=== PATIENT | female | born 1980 | race Caucasian/White ===

== ENCOUNTER 2019-10-31 18:59 | Emergency (ER) | payer OTHER ==
[2019-10-31 19:32] VITALS: BMI 53.7
--- NOTE | 2019-10-31 20:46 | PDOC ---
History of Present Illness - General Chief Complaint: Pain Stated Complaint: ABDOMINAL PAIN Time Seen by Provider: 10/31/19 20:41 History Source: Patient - History of Present Illness Initial Comments: 10/31/19 20:43 38 year old chills, upper abdominal pain x 2 days. + runny nose denies nausea, vomiting,diarrhea. took tylenol at 6.30 pm. surgical site clean dry and intact. s/p gastric sleeve October 14, 2019 Dr. Alas Past History - Past Medical History Allergies/Adverse Reactions: Allergies Allergy/AdvReac Type Severity Reaction Status Date / Time nickel Allergy Verified 10/31/19 19:33 COPD: No - Surgical History GI Surgery: Yes (Gastric sleeve 10/14/19) - Psycho Social/Smoking Cessation Hx Smoking History: Never smoked Hx Alcohol Use: No Drug/Substance Use Hx: No Review of Systems - Review of Systems Able to Perform ROS?: Yes Is the patient limited Spanish proficient: No Constitutional: Yes: Chills, Other HEENTM: Yes: Nose Congestion. No: Symptoms Reported, See HPI, Eye Pain, Blurred Vision, Tearing, Recent change in vision, Double Vision, Cataracts, Ear Pain, Ocular Prothesis, Ear Discharge, Nose Pain, Tinnitus, Nose Bleeding, Hearing Loss, Throat Pain, Throat Swelling, Mouth Pain, Dental Problems, Difficulty Swallowing, Mouth Swelling, Other Cardiac (ROS): Yes: Chest Pain ABD/GI: Yes: Abdominal cramping (epigastric area radiating up). No: Symptoms Reported, See HPI, Abdominal Distended, Abd. Pain w/ defecation, Blood Streaked Bowels, Constipated, Diarrhea, Difficulty Swallowing, Nausea, Poor Appetite, Poor Fluid Intake, Rectal Bleeding, Vomiting, Indigestion, Tarry Stools, Other : No: Symptoms Reported, See HPI, Burning, Dysuria, Discharge, Frequency, Flank Pain, Hematuria, Incontinence, Pain, Urgency, Testicular Mass, Testicular Swelling, Lesions, Testicular Pain, Other *Physical Exam - Vital Signs Last Vital Signs Temp Pulse Resp BP Pulse Ox 97.8 F 117 H 19 140/68 100 10/31/19 19:29 10/31/19 19:29 10/31/19 19:29 10/31/19 19:29 10/31/19 19:29 - Physical Exam General Appearance: Yes: Appropriately Dressed Respiratory/Chest: positive: Lungs Clear, Normal Breath Sounds Cardiovascular: positive: Regular Rhythm, Regular Rate Gastrointestinal/Abdominal: positive: Normal Bowel Sounds, Tender (RUQ), Soft Extremity: positive: Normal Capillary Refill, Normal Inspection, Normal Range of Motion Integumentary: positive: Normal Color, Dry, Warm Neurologic: positive: Fully Oriented, Alert ED Treatment Course - LABORATORY CBC & Chemistry Diagram: 10/31/19 22:05 10/31/19 22:05 ED Progress Note - Progress Note Progress Note: 10/31/19 23:17 A: abdominal pain s/p gastric sleeve P; cbc cmp lactic acid 1.2 blood culture ua urine culture Medical Decision Making - Medical Decision Making 10/31/19 20:54 rectal temp is 103.8 10/31/19 23:[address] Gusman surgeon covering for Dr. Zeke alas 11/01/19 00:[address] gusman. accepted patient for transfer at [facility]. I spoke to JOE novak in [facility]. after speaking with ED attending prefer patient to be transferred to floor admission after CTAP/ 11/01/19 00:41 I spoke to Bedboard. no direct admission after hours i spoke to ED attending Dr. Whitaker. accepting patient for transfer to the ER 11/01/19 01:33 patient is pendoing CTAP read and transfer to [facility] 11/01/19 01:51 CTAP 2.6 x 3.4 x 2.4 cm area of confluent edema with gas versus fluid and gas collection within the left upper quadrant immediately adjacent to the proximal stomach is concerning for leak status post gastric sleeve resection. Recommend repeat CT following administration of water- soluble contrast and/or fluoroscopy. One or more of the following dose reduction techniques were used: aut 11/01/19 01:58 Laboratory Results - last 24 hr 10/31/19 10/31/19 10/31/19 21:12 22:05 22:05 WBC 19.4 H RBC 4.66 Hgb 12.6 Hct 39.2 MCV 84.3 MCH 27.0 MCHC 32.0 RDW 13.9 Plt Count 354 MPV 8.4 Absolute Neuts (auto) 17.7 H Neutrophils % 91.2 H Neutrophils % (Manual) 90.0 H Band Neutrophils % 4.0 Lymphocytes % 3.1 L Lymphocytes % (Manual) 4.0 L Monocytes % 5.4 Monocytes % (Manual) 2 L Eosinophils % 0.1 Eosinophils % (Manual) 0.0 Basophils % 0.2 Basophils % (Manual) 0.0 Nucleated RBC % 0 Platelet Estimate Adequate PT with INR 17.90 H INR 1.51 H PTT (Actin FS) 34.4 Sodium Potassium Chloride Carbon Dioxide Anion Gap BUN Creatinine Est GFR (CKD-EPI)AfAm Est GFR (CKD-EPI)NonAf Random Glucose Lactic Acid Calcium Total Bilirubin AST ALT Alkaline Phosphatase Troponin I Total Protein Albumin Lipase 123 Urine Color Urine Appearance Urine pH Ur Specific [place] Urine Protein Urine Glucose (UA) Urine Ketones Urine Blood Urine Nitrite Urine Bilirubin Urine Urobilinogen Ur Leukocyte Esterase Urine WBC (Auto) Urine RBC (Auto) Urine Casts (Auto) U Epithel Cells (Auto) Urine Bacteria (Auto) Urine HCG, Qual Influenza A (Rapid) Influenza B (Rapid) 10/31/19 10/31/19 10/31/19 22:05 22:05 22:05 WBC RBC Hgb Hct MCV MCH MCHC RDW Plt Count MPV Absolute Neuts (auto) Neutrophils % Neutrophils % (Manual) Band Neutrophils % Lymphocytes % Lymphocytes % (Manual) Monocytes % Monocytes % (Manual) Eosinophils % Eosinophils % (Manual) Basophils % Basophils % (Manual) Nucleated RBC % Platelet Estimate PT with INR INR PTT (Actin FS) Sodium 132 L Potassium 3.7 Chloride 100 Carbon Dioxide 21 Anion Gap 11 BUN 7.5 Creatinine 0.9 Est GFR (CKD-EPI)AfAm 92.70 Est GFR (CKD-EPI)NonAf 79.98 Random Glucose 120 H Lactic Acid Calcium 8.9 Total Bilirubin 0.8 AST 17 ALT 26 Alkaline Phosphatase 87 Troponin I Total Protein 7.5 Albumin 3.4 Lipase Urine Color Urine Appearance Urine pH Ur Specific [place] Urine Protein Urine Glucose (UA) Urine Ketones Urine Blood Urine Nitrite Urine Bilirubin Urine Urobilinogen Ur Leukocyte Esterase Urine WBC (Auto) Urine RBC (Auto) Urine Casts (Auto) U Epithel Cells (Auto) Urine Bacteria (Auto) Urine HCG, Qual Negative Influenza A (Rapid) Negative Influenza B (Rapid) Negative 10/31/19 10/31/19 10/31/19 22:05 22:05 22:05 WBC RBC Hgb Hct MCV MCH MCHC RDW Plt Count MPV Absolute Neuts (auto) Neutrophils % Neutrophils % (Manual) Band Neutrophils % Lymphocytes % Lymphocytes % (Manual) Monocytes % Monocytes % (Manual) Eosinophils % Eosinophils % (Manual) Basophils % Basophils % (Manual) Nucleated RBC % Platelet Estimate PT with INR INR PTT (Actin FS) Sodium Potassium Chloride Carbon Dioxide Anion Gap BUN Creatinine Est GFR (CKD-EPI)AfAm Est GFR (CKD-EPI)NonAf Random Glucose Lactic Acid 1.2 Calcium Total Bilirubin AST ALT Alkaline Phosphatase Troponin I < 0.02 Total Protein Albumin Lipase Urine Color Dk yellow Urine Appearance Clear Urine pH 5.5 Ur Specific [place] 1.031 Urine Protein 1+ H Urine Glucose (UA) Negative Urine Ketones 4+ H Urine Blood Negative Urine Nitrite Negative Urine Bilirubin 1+ H Urine Urobilinogen 1.0 Ur Leukocyte Esterase Negative Urine WBC (Auto) 3 Urine RBC (Auto) 1 Urine Casts (Auto) 14 U Epithel Cells (Auto) 2.3 Urine Bacteria (Auto) 21.2 Urine HCG, Qual Influenza A (Rapid) Influenza B (Rapid) Discharge - Discharge Information Problems reviewed: Yes Clinical Impression/Diagnosis: Abdominal pain Qualifiers: Abdominal location: upper abdomen, unspecified Qualified Code(s): R10.10 - Upper abdominal pain, unspecified Disposition: TRANSFER ACUTE CARE/OTHER HOSP - Follow up/Referral Referrals: ON STAFF,NOT [Primary Care Provider] - - Patient Discharge Instructions - Post Discharge Activity
[2019-10-31] MEDS ORDERED: SODIUM CHLORIDE 1,000 ML IV STA (20:48)
[2019-10-31] MEDS ORDERED: IBUPROFEN 600 MG TABLET (FP) PO ONE ×2 (20:54→22:43)
[2019-10-31 22:21] LABS: BASO % 0.2 % (0-2.0); EOS % 0.1 % (0-4.5); HEMATOCRIT 39.2 % (32.4-45.2); HEMOGLOBIN 12.6 GM/dL (10.7-15.3); LYMPH % 3.1 % (8-40); MEAN CELL VOLUME 84.3 fl (80-96); MEAN PLT VOLUME 8.4 fl (7.5-11.1); MONO % 5.4 % (3.8-10.2); NEUT % 91.2 % (42.8-82.8); PLATELET COUNT 354 K/MM3 (134-434); RBC 4.66 M/mm3 (3.60-5.2); RDW 13.9 % (11.6-15.6); WHITE BLOOD COUNT 19.4 K/mm3 (4.0-10.0)
[2019-10-31 22:28] LABS: EPI CELLS 2.3 /HPF (0-5/HPF); HYALINE CASTS 14 /lpf (0-8); PH,URINE 5.5 (5.0-8.0); URINE APPEARANCE CLEAR; URINE BACTERIA 21.2 /hpf (NEGATIVE); URINE BILIRUBIN 1+ (NEGATIVE); URINE COLOR DK YELLOW; URINE GLUCOSE (UA) NEGATIVE (NEGATIVE); URINE KETONE 4+ (NEGATIVE); URINE LEUK ESTERASE NEGATIVE (NEGATIVE); URINE NITRITE NEGATIVE (NEGATIVE); URINE PROTEIN 1+ (NEGATIVE); URINE RBC 1 /hpf (0-4); URINE WBC 3 /hpf (0-5)
[2019-10-31 22:33] LABS: INR 1.51 (0.83-1.09); PROTHROMBIN TIME (PATIENT) 17.9 SEC (9.7-13.0)
[2019-10-31 22:35] LABS: ACTIVATED PTT 34.4 SECONDS (25.2-36.5)
[2019-10-31 22:50] LABS: PLATELET ESTIMATE ADEQUATE
[2019-10-31 22:52] LABS: ALBUMIN 3.4 g/dl (3.4-5.0); BILIRUBIN,TOTAL 0.8 mg/dL (0.2-1); BLOOD UREA NITROGEN 7.5 mg/dL (7-18); CALCIUM 8.9 mg/dL (8.5-10.1); CREATININE 0.9 mg/dL (0.55-1.3); POTASSIUM 3.7 mmol/L (3.5-5.1); TOT PROT 7.5 g/dl (6.4-8.2)
[2019-10-31] MEDS ORDERED: PIPERACILLIN/TAZOB 3.375 GM 3.375 GM in DEXTROSE 5%-WATER - 50 ML IVPB ONE (23:16)
[2019-10-31] MEDS ORDERED: SODIUM CHLORIDE 0.9% 500 ML INFUS.BAG IV ONE (23:19)
[2019-11-01] MEDS ORDERED: PIPERACILLIN/TAZOB 3.375 GM 3.375 GM/50 ML BAG IVPB ONE (00:28)
[2019-11-01] MEDS ORDERED: ACETAMINOPHEN 1000 MG/100 ML VIAL (NON FORMULARY) IVPB ONE (00:41)
[2019-11-01] MEDS ORDERED: ACETAMINOPHEN INJECTION 100 ML IVPB ONE (01:29)
[2019-11-01 02:06] VITALS: BP 116/66; PULSE 98; TEMP 100.3
--- NOTE | 2019-11-01 13:22 | EKG ---
Test Reason : Blood Pressure : / mmHG Vent. Rate : 092 BPM Atrial Rate : 092 BPM P-R Int : 116 ms QRS Dur : 088 ms QT Int : 350 ms P-R-T Axes : 042 023 044 degrees QTc Int : 432 ms NORMAL SINUS RHYTHM NORMAL ECG NO PREVIOUS ECGS AVAILABLE Confirmed by DAVID CALLAWAY MD ([id number]) on 11/01/2019 1:21:36 PM Referred By: Confirmed By:DAVID CALLAWAY MD
--- NOTE | 2019-11-03 15:41 | PDOC ---
Patient Follow-up (Call Back) - Post ED Follow - Up Disposition at time of original discharge: TRANSFER ACUTE CARE/OTHER HOSP - Disposition Additional Instructions/Notes: Received call from lab that patient had 1 of 2 blood cultures with small amount of GPC Could possibly be contaminant Attempted to reach patient to see how she was feeling, but no answer VM left for callback
== END 2019-11-01 02:14 | disposition short-term general hospital (02) ==
LOC: JER 18:59
PROC: 3E0337Z Introduction of Electrolytic and Water Balance Substance into Peripheral Vein, Percutaneous Approach (ICD-10-PCS; principal; 2019-10-31)
PROC: 3E033GC Introduction of Other Therapeutic Substance into Peripheral Vein, Percutaneous Approach (ICD-10-PCS; 2019-10-31)
PROC: 3E033NZ Introduction of Analgesics, Hypnotics, Sedatives into Peripheral Vein, Percutaneous Approach (ICD-10-PCS; 2019-10-31)
DX: R10.13 Epigastric pain (principal); Z98.84 Bariatric surgery status
CPT/HCPCS: 36415; 71045-TC-FY; 74177-TC; 76705-TC; 80053; 81003; 83605; 83690; 84484; 84703; 85025; 85610; 85730; 87040; 87086; 87804; 93005; 93010; 99283-25; J0131; J7030